=== PATIENT | male | born 1980 | race Caucasian/White ===

== ENCOUNTER 2024-10-30 11:24 | Emergency (ER) | payer OTHER ==
[2024-10-30] MEDS ORDERED: Lidocaine 1% (PF) 30 ML VIAL ONE (12:20)
[2024-10-30] MEDS ORDERED: Boostrix 0.5 ML (Tdap) VIAL (>/=7 yrs of age) ONE (13:02)
== END 2024-10-30 13:25 | disposition home or self-care (01) ==
LOC: NAV ERS 11:24
DX: S61.213A Laceration without foreign body of left middle finger without damage to nail, initial encounter (principal); S61.217A Laceration without foreign body of left little finger without damage to nail, initial encounter; S61.215A Laceration without foreign body of left ring finger without damage to nail, initial encounter; I10 Essential (primary) hypertension; W26.9XXA Contact with unspecified sharp object(s), initial encounter; Z23 Encounter for immunization
CPT/HCPCS: 12001; 90471; 90715